=== PATIENT | female | born 1955 | race Caucasian/White ===

== ENCOUNTER → 2017-11-05 01:36 | Outpatient (CLI) | payer BC, SELFPAY ==
--- NOTE | 2017-11-05 11:58 | DI.REPORT_ITS ---
SYMPTOM/DIAGNOSIS: SCREENING, Z12.31, WELL ADULT EXAM, Z00.00 MAMMOGRAM: Mammograms were interpreted according to the usual protocol including computer analysis with CAD system, tomosynthesis and C view imaging. Comparison with prior examinations. Breast density B. No suspicious masses or microcalcifications are seen. There is breast asymmetry in the upper central right breast on the mediolateral oblique view. This area should be further evaluated with spot compression view. Ultrasound may be indicated at that time. IMPRESSION: Additional views of the right breast as described above. Category O. MQSA ASSESSMENT OF FINDINGS: Incomplete: Needs additional imaging evaluation. Category 0. Patient will receive a letter notifying them of these results. BI-RADS category B. There are scattered areas of fibroglandular density.
== END ==
PROVIDERS: PCP Family Medicine; Visit Provider Family Medicine
DX: Z00.00 Encounter for general adult medical examination without abnormal findings (principal); Z12.31 Encounter for screening mammogram for malignant neoplasm of breast; R92.8 Other abnormal and inconclusive findings on diagnostic imaging of breast
CPT/HCPCS: 77063; 77067

== ENCOUNTER → 2017-11-05 03:16 | Outpatient (CLI) | payer BC, SELFPAY ==
[2017-11-05 12:02] LABS: ALT 26 U/L (12-78); AST 17 U/L (15-37); Albumin 4.1 g/dL (3.4-5.0); Alkaline Phosphatase 79 U/L (46-116); Anion Gap 6.5 mmol/L (3-11); BUN 15 mg/dL (7-18); Bilirubin, Total 1.7 mg/dL (0.2-1.0); CO2 28.5 mmol/L (21.0-32.0); CREATININE 0.93 mg/dL (0.55-1.02); Calcium 8.7 mg/dL (8.5-10.1); Chloride 105 mmol/L (98-107); Cholesterol 187 mg/dL (50-200); Glucose 95 mg/dL (70-100); HDL Cholesterol 58 mg/dL (40-60); LDL CHOLESTEROL 106 mg/dL (<100); Potassium 4.2 mmol/L (3.5-5.1); Sodium 140 mmol/L (136-145); Total Protein 7.2 g/dL (6.4-8.2); Triglyceride 173 mg/dL (30-150)
== END ==
PROVIDERS: PCP Family Medicine; Visit Provider Family Medicine
DX: E78.5 Hyperlipidemia, unspecified (principal)
CPT/HCPCS: 36415; 80053; 80061; 83721

== ENCOUNTER → 2017-11-06 14:17 | Outpatient (CLI) | payer BC, SELFPAY ==
--- NOTE | 2017-11-06 15:00 | DI.REPORT_ITS ---
SYMPTOMS/DIAGNOSIS: F/U ABNORMAL MAMMO, BREAST ASYMMETRY IN UPPER CENTRAL RIGHT BREAST ON MEDIOLATERAL OBLIQUE VIEW ADDITIONAL MAMMOGRAPHIC VIEWS OF THE RIGHT BREAST AND RIGHT BREAST ULTRASOUND: A compression right mediolateral image was obtained today. There is moderate radiodensity of the breast tissue. No discrete mass is suggested. At ultrasound, no cyst or mass is seen. SUMMARY: No evidence of malignancy, category 1. Annual screening mammography is recommended. Breast density category B. MQSA ASSESSMENT OF FINDINGS: Negative. Category 1. Patient will receive a letter notifying them of these results. BI-RADS category B. There are scattered areas of fibroglandular density.
== END ==
PROVIDERS: PCP Family Medicine; Visit Provider Family Medicine
DX: Z12.31 Encounter for screening mammogram for malignant neoplasm of breast (principal); R92.8 Other abnormal and inconclusive findings on diagnostic imaging of breast; N64.59 Other signs and symptoms in breast
CPT/HCPCS: 76642; 77063; 77067

== ENCOUNTER 2018-11-05 02:42 | Outpatient (CLI) | payer BC, SELFPAY ==
[2018-11-05 11:21] LABS: Abs Immature Grans 0.01 k/cumm (0.0-0.09); Absolute Eosinophil Count 0.23 k/cumm (0.0-0.7); Absolute Lymphocyte Count 1.94 k/cumm (1.2-3.4); Absolute Monocyte Count 0.32 k/cumm (0.11-0.7); Absolute Neutrophil Count 3.77 k/cumm (1.2-6.7); Basophils % 1.6; Eosinophils % 3.6; HCT 42.3 % (36.0-46.0); HGB 14.6 g/dL (12.0-15.5); Immature Grans % 0.2; Lymphocytes % 30.5; Mean Corp. HGB Concentration 34.5 g/dL (32.0-36.0); Mean Corpuscular Hemoglobin 31.7 pg (27.0-33.0); Mean Platelet Volume 11.7 fL (8.0-11.0); Neutrophils % 59.1; Platelet Count 315 x1000/uL (130-400); RBC Distribution Width 12.1 % (11.7-14.6); White Blood Cell Count 6.37 k/cumm (4.4-10.8)
[2018-11-05 12:12] LABS: ALT 29 U/L (14-59); AST 14 U/L (15-37); Albumin 4.1 g/dL (3.4-5.0); Alkaline Phosphatase 80 U/L (46-116); Anion Gap 10.7 mmol/L (3-11); BUN 15 mg/dL (7-18); Bilirubin, Total 1.1 mg/dL (0.2-1.0); CO2 26.3 mmol/L (21.0-32.0); Calcium 9.1 mg/dL (8.5-10.1); Calculated LDL 99 mg/dL; Chloride 105 mmol/L (98-107); Cholesterol 169 mg/dL (50-200); Glucose 92 mg/dL (70-100); HDL Cholesterol 56 mg/dL (40-60); Potassium 4.4 mmol/L (3.5-5.1); Sodium 142 mmol/L (136-145); Total Protein 7.2 g/dL (6.4-8.2); Triglyceride 72 mg/dL (30-150)
== END 2018-11-05 03:02 ==
PROVIDERS: PCP Family Medicine; Visit Provider Family Medicine
DX: R13.10 Dysphagia, unspecified (principal); R49.0 Dysphonia; E78.5 Hyperlipidemia, unspecified
CPT/HCPCS: 36415; 80053; 80061; 83721; 85025

== ENCOUNTER 2018-11-19 00:41 | Outpatient (CLI) | payer BC, SELFPAY ==
--- NOTE | 2018-11-19 12:47 | DI.MAMMO_ITS ---
SYMPTOM/DIAGNOSIS: SCREENING Z12.31 BILATERAL SCREENING MAMMOGRAM: Mammograms were interpreted according to the usual protocol including computer analysis with CAD system, tomosynthesis and C view imaging. Comparison is made with exams from 2015 through 2018. The breasts are composed of scattered fibroglandular densities, breast density category B. No suspicious masses or suspicious microcalcifications are seen. There has been no significant change. There is motion on the right MLO view. The patient should return for a repeat right MLO view at no additional charge. IMPRESSION: Left beast Category 1, negative. Breast density category B. Right breast Category 0 MQSA ASSESSMENT OF FINDINGS: Incomplete: Needs additional imaging evaluation. Category 0. Patient will receive a letter notifying them of these results. BI-RADS category B. There are scattered areas of fibroglandular density.
== END 2018-11-19 01:01 ==
PROVIDERS: PCP Family Medicine; Visit Provider Family Medicine
DX: Z12.31 Encounter for screening mammogram for malignant neoplasm of breast (principal); R92.8 Other abnormal and inconclusive findings on diagnostic imaging of breast
CPT/HCPCS: 77063; 77067

== ENCOUNTER 2018-12-01 00:35 | Outpatient (CLI) | payer BC, SELFPAY ==
--- NOTE | 2018-12-01 13:55 | DI.MAMMO_ITS ---
EXAM: MG MAMMO SCREEN CALL BACK UNI CLINICAL HISTORY: REPEAT RT MLO VIEW AT NO ADDITIONAL CHARGE DUE TO MOTION. TECHNIQUE: Mammograms were interpreted according to the usual protocol including [facility], tomosynthesis and C-view imaging. COMPARISON: No exams were available for comparison FINDINGS: The breast tissue is of moderate radiodensity. There is no dominant mass, no suspicious calcificatio ns and there has been no significant interval change when compared with prior images. IMPRESSION: No evidence of malignancy, category 1, annual screening mammography is recommended. Breast density: Category BI-RADS Cat 1 - Negative Breast Density - Category B - Scattered areas of fibroglandular density
== END 2018-12-01 00:55 ==
PROVIDERS: PCP Family Medicine; Visit Provider Family Medicine
DX: Z12.31 Encounter for screening mammogram for malignant neoplasm of breast (principal); R92.8 Other abnormal and inconclusive findings on diagnostic imaging of breast; N64.59 Other signs and symptoms in breast
CPT/HCPCS: 77063; 77067

== ENCOUNTER 2019-02-16 08:05 | Day surgery (SDC) | payer BC, SELFPAY ==
[2019-02-16 08:17] VITALS: BP 132/75; PULSE 70; RESP 18; TEMP 36.2; O2SAT 98
--- NOTE | 2019-02-16 08:23 | W.COLOREPORT ---
Date of service: 02/16/19 Time of Service: :39 Colonoscopy Report Date of procedure: 02/16/19 Pre-op diagnosis general: Colon Cancer Screening/ Hx of polyps/ Family history of colon cancer Post-op diagnosis procedure note: same (and polyp and diverticulosis) Procedure: Colonoscopy with polypectomy Surgeon: Clarissa Zheng Anesthesia proc note operative: other (General/ ASA 2/ Ladonna Dorado, ANGELA) Estimated blood loss (mL): 5 Pathology: other (Ascending polyp) Complications: None Disposition: same day Indications: The patient is here for Colonoscopy pre-op. She has not had any bowel habit changes. Her last screening was in 2013, which was remarkable for Tubular adenoma. She reports a family history of colon cancer in her mother and two maternal uncles. -Discussed colonoscopy bowel prep as well as the procedure. Discussed possible complications of the procedure to include bleeding, pain, perforation, missed small lesion/polyp, sore throat, aspiration and adverse reaction to the medications. Questions were answered to patient?s satisfaction. No guarantees were implied or given. Prep: Miralax/Dulcolax Procedure Start Time: Procedure End Time: :09 Retraction Time: 14 minutes Findings: One small sessile polyp in the ascending colon Mild diverticulosis Procedure Description: After informed consent was obtained the patient was taken to the procedure room and placed in a left decubitous position. Monitors were applied and a time out was done. The patients name, date of , procedure, allergies to medications and metal in their body was reviewed. The patient was then sedated. Once sedated and comfortable a rectal exam was done. External exam was normal. Internal exam revealed a normal sphincter tone and no palpable masses. . The scope was then introduced and retro-flexed. No internal hemorrhoids were identified. The scope was then advanced to the cecum without difficulty. The TI and appendiceal orifice were identified. The prep was adequate. The scope was then slowly retracted over 14 minutes back into the rectum. Polyps were removed with cold forceps in the ascending colon. The scope was removed and the patient was woken up and taken back to Same day surgery in stable condition. The patient tolerated the procedure well and there were no immediate complications. Follow up: The patient should follow up in 3-5 years unless they develop changes in bowel habits or other new gastrointestinal complaints.
--- NOTE | 2019-02-16 08:24 | W.PM.DSUDISC ---
Discharge Plan Disposition Patient Disposition: HOME Condition: Good Discharge Details Reason For Visit: Colonoscopy Attending Provider: Clarissa Zheng Primary Care Provider: Salomón Erazo Home Meds and New Rx's Prescriptions: Continued cholecalciferol (vitamin D3) 1,000 unit capsule 1,000 unit PO DAILY RF: 0 biotin 500 mcg capsule 1 mg PO DAILY RF: 0 multivitamin 1 tab PO DAILY RF: 0 atorvastatin [Lipitor] 40 mg tablet 40 mg PO HS 90 Days Qty: 90 RF: 4 Discontinued polyethylene glycol 3350 17 gram/dose powder 238 g PO ONCE Qty: 238 RF: 0 bisacodyl [Dulcolax (bisacodyl)] 5 mg tablet,delayed release (DR/EC) 5 mg PO ONCE Qty: 4 RF: 0 Discharge Instructions Instructions: Diverticulosis (DC) Additional Instructions: Findings: Mild diverticulosis Small polyp Follow up: 3-5 years Please call if you develop: fevers >101.5 Nausea or Vomiting Abdominal pain that is not transient DAY SURGERY UNIT POST ENDOSCOPY INSTRUCTIONS 1. Because there will be medication in your system for the next 24 hours, you may feel a little sleepy. Your coordination will be affected. Therefore: a. Do not drive or operate dangerous equipment for 24 hours. b. Do not drink alcohol beverages for 24 hours (not even beer). c. Plan to go home and rest for the day. 2. Generally there are no restrictions on your activity after a day or so has gone by, but you may feel a bit fatigued for a few days. 3 After you arrive home you may have a light meal and return to a normal diet as you can tolerate it without feeling sick to your stomach. 4. After surgery, you may feel pain or discomfort. This should be only transient, but if it persists please contact your doctor. 5. If there are any questions regarding the findings of your procedure, please feel free to contact your doctor. 6. If you are unable to contact your doctor with a problem, contact the hospital at [phone]. 7. Continue all your regular medications unless directed otherwise. I understand the above instructions and have no questions. Signature of Patient or Responsible Adult Escort Date/Time Name of Responsible Adult Escort Signature of Nurse Date/Time Activity:: Activity as Tolerated Diet:: As Tolerated Discharge Orders Discharge Orders: Discharge Order (Routine); Ordered 02/16/19 Ordered By: Clarissa Zheng DS: Diagnosis Discharge Diagnosis (1) Colonoscopy - MAC: Status: None (2) Family history of colon cancer: Status: Acute (3) Diverticulosis: Status: Acute
[2019-02-16] MEDS: Lactated Ringers 1,000 ML 80 ML IV (08:30)
--- NOTE | 2019-02-16 09:56 | BOWEL_PTH ---
PATIENT: Brooke Livingston LOC: [facility] U#:[id number] AGE/SX: 63/F ROOM: RE02/16/[address]: Clarissa Zheng MD : 1955 BED: DIS: 02/16/2019 SPEC #: [id number] RECD: 02/16/19 13:03 STATUS: CHER RE #: [id number] ALEJANDRA: 02/16/19 09:[address]: Clarissa Zheng DEPT: Surgical Specimen RECD BY: Atiya Araiza ENTERED: 02/16/19 13:04 SP TYPE: Bowel OTHR DR: Salomón Erazo MD Tissues: 1 - BIOPSY BOWEL Procedures: GROSS AND MICRO LEVEL 4 Comments: [id number]
[2019-02-16 10:45] VITALS: BP 111/58; PULSE 64; RESP 18; TEMP 36.4; O2SAT 99
== END 2019-02-16 11:15 | disposition home or self-care (01) ==
PROVIDERS: PCP Family Medicine; Visit Provider Surgery
PROC: 0DJD8ZZ Inspection of Lower Intestinal Tract, Via Natural or Artificial Opening Endoscopic (ICD-10-PCS; CPT 45378; principal; 2019-02-16 09:30)
DX: Z12.11 Encounter for screening for malignant neoplasm of colon (principal); D12.2 Benign neoplasm of ascending colon; Z86.010 Personal history of colon polyps; Z80.0 Family history of malignant neoplasm of digestive organs; K57.30 Diverticulosis of large intestine without perforation or abscess without bleeding
CPT/HCPCS: 45380; 88305

== ENCOUNTER 2019-11-17 04:59 | Outpatient (CLI) | payer BC, SELFPAY ==
[2019-11-17 12:55] LABS: ALT 35 U/L (14-59); AST 21 U/L (15-37); Albumin 4.3 g/dL (3.4-5.0); Alkaline Phosphatase 74 U/L (46-116); Anion Gap 8.7 mmol/L (3-11); BUN 9 mg/dL (7-18); Bilirubin, Total 1.6 mg/dL (0.2-1.0); CO2 27.3 mmol/L (21.0-32.0); CREATININE 0.88 mg/dL (0.55-1.02); Calcium 9.1 mg/dL (8.5-10.1); Calculated LDL 77 mg/dL (<100); Chloride 102 mmol/L (98-107); Cholesterol 156 mg/dL (<200); Glucose 97 mg/dL (74-106); HDL Cholesterol 64 mg/dL (40-60); Potassium 3.8 mmol/L (3.5-5.1); Sodium 138 mmol/L (136-145); Total Protein 7.3 g/dL (6.4-8.2); Triglyceride 78 mg/dL (<150)
== END 2019-11-17 05:19 ==
PROVIDERS: PCP Family Medicine; Visit Provider Family Medicine
DX: Z00.00 Encounter for general adult medical examination without abnormal findings (principal); E78.5 Hyperlipidemia, unspecified
CPT/HCPCS: 36415; 80053; 80061

== ENCOUNTER 2019-12-01 00:29 | Outpatient (CLI) | payer BC, SELFPAY ==
--- NOTE | 2019-12-01 11:11 | DI.MAMMO_ITS ---
EXAM: MG MAMMO SCREENING CLINICAL HISTORY: screening,Z12.31 TECHNIQUE: Bilateral full field digital CC and MLO mammographic images were obtained with 3D tomosyn thesis and utilizing computer aided detection (CAD). COMPARISON: Available for comparison. FINDINGS: Masses/Architectural Distortion: There is a focal asymmetric density in the retroareolar region of th e right breast on the mediolateral oblique view. Microcalcifications: No suspicious pleomorphic-type are seen. Skin Thickening/Nipple Retraction: None. IMPRESSION: 1. Focal asymmetric density in the retroareolar region of the right breast on the MLO view. 2. Spot compression views requested for further evaluation. Ultrasound may be indicated at that time . BI-RADS Category 0 - Assessment Incomplete: Need additional imaging evaluation Breast Density - Category B - Scattered areas of fibroglandular density A negative radiographic report should not delay biopsy if a dominant or clinically suspicious mass is present. Up to ten percent of cancers are not identified on mammography. A negative report may reinforce clinical impression. Adenosis and dense breasts may obscure an underlying neoplasm. False positive reports average 6 to 10%. Patient will receive a letter notifying them of these results.
== END 2019-12-01 00:49 ==
PROVIDERS: PCP Family Medicine; Visit Provider Family Medicine
DX: Z12.31 Encounter for screening mammogram for malignant neoplasm of breast (principal); R92.8 Other abnormal and inconclusive findings on diagnostic imaging of breast
CPT/HCPCS: 77063; 77067

== ENCOUNTER 2019-12-08 01:23 | Outpatient (CLI) | payer BC, SELFPAY ==
--- NOTE | 2019-12-08 09:15 | DI.MAMMO_ITS ---
EXAM: MAMMO SCREEN CALL BACK UNI CLINICAL HISTORY: F/U MAMMO, FOCAL ASYMMETRIC DENSITY ON MLO VIEW TECHNIQUE: Spot compression views including C- View and tomographic imaging were performed. COMPARISON: 01 December 2019 and exams back to 2010 FINDINGS: The breasts are composed of scattered fibroglandular densities, Breast Density category B. No suspicious masses or suspicious microcalcifications are seen. No persistent abnormality is seen on the additional views performed. The findings are consistent wit h overlying fibroglandular tissue. There has been no significant change from prior exams. IMPRESSION: BI-RADS Category 1, Negative Yearly screening mammography is recommended. Breast Density - Category B, scattered fibroglandular densities.
== END 2019-12-08 01:43 ==
PROVIDERS: PCP Family Medicine; Visit Provider Family Medicine
DX: R92.8 Other abnormal and inconclusive findings on diagnostic imaging of breast (principal)
CPT/HCPCS: 77063; 77067

== ENCOUNTER 2020-11-18 12:17 | Outpatient (REF) | payer BC, SELFPAY ==
--- NOTE | 2020-11-18 10:00 | PAPFT_PTH ---
PATIENT: Brooke Livingston LOC: [facility] U#:[id number] AGE/SX: 65/F ROOM: RE11/18/[address]: Fabby Phan : 1955 BED: DIS: 11/18/2020 SPEC #: [id number] RECD: 11/18/20 12:53 STATUS: CHER RECary #: [id number] ALEJANDRA: 11/18/20 10:[address]: Fabby Phan DEPT: [facility] Cytology RECD BY: Atiya Araiza Tissues: 1 - CX/ENDOCX FOR PAP SMEARS Procedures: PAP THIN PREP/UVM Screening HPV DNA PROBE Comments: [id number]
[2020-11-21 14:10] LABS: Chlamydia Result Negative (Negative); GC Result Negative (Negative)
== END 2020-11-18 12:18 | disposition home or self-care (01) ==
LOC: LBN 12:17
PROVIDERS: PCP Family Medicine; Referring Provider Family Medicine; Visit Provider Family Medicine
DX: Z11.8 Encounter for screening for other infectious and parasitic diseases (principal); Z12.4 Encounter for screening for malignant neoplasm of cervix; Z01.419 Encounter for gynecological examination (general) (routine) without abnormal findings; Z11.51 Encounter for screening for human papillomavirus (HPV)
CPT/HCPCS: 87491; 87591; 88142; 87624

== ENCOUNTER 2020-12-08 02:23 | Outpatient (CLI) | payer BC, SELFPAY ==
--- NOTE | 2020-12-08 12:34 | DI.MAMMO_ITS ---
Exam(s) MAMMO SCREENING EXAM: MAMMO SCREENING CLINICAL HISTORY: screening,z12.39 TECHNIQUE: Bilateral full field digital CC and MLO mammographic images were obtained with 3D tomosyn thesis and utilizing computer aided detection (CAD). COMPARISON: Available for comparison. FINDINGS: Masses/Architectural Distortion: None seen. Microcalcifications: No suspicious pleomorphic-type are seen. Skin Thickening/Nipple Retraction: None. IMPRESSION: 1. No significant interval change with no specific features of malignancy noted. 2. Unless there is more urgent need, screening mammography is recommended, as per [employer] guidelines. BI-RADS Category 1 - Negative Breast Density - Category B - Scattered areas of fibroglandular density Breast density category C or D implies that the patient has dense breast tissue. Dense breast tissue is very common and is not abnormal but dense breast tissue can make it harder to find cancer on a ma mmogram. Also, dense breast tissue may increase their breast cancer risk. This information about the result of the mammogram report was provided to the patient to raise their awareness. Use this report when you speak with the patient about their risks for breast cancer, which includes their family hist ory. At that time, you may recommend for more screening tests (Ultrasound or MRI) as they might be us eful based on their risk. A negative radiographic report should not delay biopsy if a dominant or clinically suspicious mass is present. Up to ten percent of cancers are not identified on mammography. A negative report may reinforce clinical impression. Adenosis and dense breasts may obscure an underlying neoplasm. False positive reports average 6 to 10%. Patient will receive a letter notifying them of these results.
== END 2020-12-08 02:43 ==
PROVIDERS: PCP Family Medicine; Visit Provider Family Medicine
DX: Z12.31 Encounter for screening mammogram for malignant neoplasm of breast (principal)
CPT/HCPCS: 77063; 77067

== ENCOUNTER → 2022-02-26 01:29 | Outpatient (CLI) | payer MEDICAID, SELFPAY ==
--- NOTE | 2022-02-26 08:00 | DI.MAMMO_ITS ---
Exam(s) MAMMO SCREENING EXAM: MAMMO SCREENING CLINICAL HISTORY: screening,Z12.39 TECHNIQUE: Mammograms were interpreted according to the usual protocol including computer analysis w [employer] CAD system, tomosynthesis and C-view imaging. COMPARISON: 2012 through 2020 FINDINGS: The breasts are composed of scattered fibroglandular densities, Breast Density category B. No suspicious masses or suspicious microcalcifications are seen. No skin thickening or abnormal axillary lymph nodes are seen. There has been no significant change from prior exams. IMPRESSION: BI-RADS Category 1, Negative mammogram Yearly screening mammography is recommended. Breast Density - Category B, scattered fibroglandular densities. A negative radiographic report should not delay biopsy if a dominant or clinically suspicious mass is present. Up to ten percent of cancers are not identified on mammography. A negative report may reinforce clinical impression. Adenosis and dense breasts may obscure an underlying neoplasm. False positive reports average 6 to 10%. Patient will receive a letter notifying them of these results.
== END ==
PROVIDERS: PCP Family Medicine; Visit Provider Family Medicine
DX: Z12.31 Encounter for screening mammogram for malignant neoplasm of breast (principal)
CPT/HCPCS: 77063; 77067

== ENCOUNTER 2022-06-06 08:12 | Day surgery (SDC) | payer MEDICAID, SELFPAY ==
[2022-06-06 08:34] VITALS: BP 128/84; PULSE 88; RESP 16; TEMP 36.2; O2SAT 96
--- NOTE | 2022-06-06 09:06 | W.ANESPRE ---
General Info Date of Service Date Performed: 06/06/22 Height: 5 ft 4 in Weight: 72.6 kg Body Mass Index (BMI): 27.4 Surgical Procedure: Operation Date: 06/06/22 09:50 Proposed Procedure Side Surgeon p George Eric MD Meds Allergies and Home Medications Allergies Allergy/AdvReac Type Severity Reaction Status Date / Time No Known Allergies Allergy Verified 06/06/22 08:40 Home Medication Medication Instructions Recorded Multivitamin 1 tab PO DAILY 01/04/14 biotin 500 mcg capsule 1 mg PO DAILY 11/03/18 latanoprost (PF) 0.005 % eye drops 1 drp ophthalmic (eye) QPM 11/18/20 atorvastatin 40 mg tablet (Lipitor) 40 mg PO HS 90 days #90 tab-caps 04/16/22 bisacodyl 5 mg tablet,delayed 5 mg PO ONCE #4 tabs 05/24/22 release (Dulcolax (bisacodyl)) calcium carbonate 600 mg calcium 600 mg PO DAILY 05/24/22 (1,500 mg) tablet (Calcium) polyethylene glycol 3350 17 17 g PO ONCE #238 grams 05/24/22 gram/dose oral powder PFSH Active Problems Active Problems: Problem Status Onset Code Tubular adenoma of colon 02/26/14 D12.6 Rosacea L71.9 Hyperlipidemia LDL goal <100 09/23/14 E78.5 Glaucoma H40.9 Serrated adenoma of colon D12.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 Presbylarynges Surgical History Surgical History History of bilateral ligation of fallopian tubes History of section Hx of section Tobacco Smoking/Tobacco Use Status: Former Tobacco Use Passive smoking exposure: Yes Second hand exposure: Yes Alcohol Alcohol Intake: current Alcohol intake frequency: a few times a week Alcohol type: beer and wine Substance Use Substance use: Occasionally Substance use type: marijuana Details: 06/06/22 : LAST SMOKED MARIJUANA 2 WEEKS AGO Vital Signs and Lab Results Vital Signs Most Recent Vital Signs in EMR: Most Recent Vital Signs Temp Pulse Resp BP Pulse Ox 36.2 C L 88 16 128/84 96 06/06/22 08:34 06/06/22 08:34 06/06/22 08:34 06/06/22 08:34 06/06/22 08:34 Lab Results Blood Type / Crossmatch: No Data to Display Complete Blood Count: No Data to Display Complete Metabolic Panel: No Data to Display Liver Function Panel: No Data to Display Coagulation Panel: No Data to Display Cardiac Panel: No Data to Display Arterial Blood Gas: No Data to Display Venous Blood Gas: No Data to Display Pancreas Panel: No Data to Display Thyroid Panel: No Data to Display Infectious Disease: No Data to Display Blood Cultures: No Data to Display Toxicology Panel: No Data to Display Anesthesia Assessment and Plan Anesthesia History Personal History: No History of Anesthesia Complications Family History: No Family History of Anesthesia Complications Exercise Tolerance Exercise Tolerance: Metabolic Equivalents>4 Pertinent Negatives Pertinent Negatives: No Symptoms of GERD Cardiac & Pulmonary Exam Cardiac Exam: Normal S1/S2 Heart Sounds Pulmonary Exam: Clear Bilateral Breath Sounds Implantable Cardiac Device Does patient have a Pacemaker or an ICD?: No Airway Exam Known Difficult Airway: No Mallampati Class: 2 Mouth Opening: Normal (> 3cm) Thyromental Distance: Greater than 3 cm Neck Range of Motion: Full ROM Neck Circumference: Normal Teeth Condition: Normal Dentition ASA Classification ASA Score: ASA 2 Emergency Case?: No NPO Status NPO Status: NPO Clears >2 hours, Solids >8 hours Anesthesia Plan Resuscitation Status: Full Code Anesthesia Technique: General Anesthesia Airway Planned: Natural Airway Monitors Used: Standard Monitors
[2022-06-06] MEDS: Lactated Ringers 1,000 ML 80 ML IV (09:12)
[2022-06-06 09:22] VITALS: BMI 27.4
--- NOTE | 2022-06-06 09:50 | COLE_ITS ---
Date of service: 06/06/22 Time of Service: 10:00 Colonoscopy Report Procedure Description: Procedures performed: 1. Colonoscopy with cold forceps polypectomy x3 Preoperative diagnosis: Surveillance colonoscopy, colon polyps, family history Postoperative diagnosis: Ileal ulcer, colon polyps, grade 1 internal hemorrhoids Surgeon: Elver Eric Anesthesia: Deonte Indication for procedure: Patient is a 66-year-old woman with personal history of adenomatous polyps, her mother and 2 of her mother's brothers (maternal uncles) have all had colon cancer. She had adenomatous polyp on her last colonoscopy. Findings: In the terminal ileum a small ulcer was seen. Significance is uncertain/unknown. I biopsied it with cold forceps technique. There was no other inflammation apparent. Various small polyps 2-3 mm in size were removed in various locations along the colon. Some of them are on the right side. They all had a hyperplastic?appearance to them but because the family and personal history I removed them all with cold forceps technique. Grade 1 internal hemorr hoids noted on retroflexion. Surveillance/follow-up recommendations: Because of the personal, family histories and finding a right?sided adenomatous polyps today I recommend repeating in 3 years.? Complications: None Blood loss: Minimal Specimens:?? YES Quality of Prep:?? Good Procedure in detail: Written consent was obtained from the patient who was in agreement with the risks, benefits and indications of the procedure.? We went to the endoscopy suite and laid the patient in left lateral decubitus position.? Anesthesia was administered which was tolerated well.? A timeout was performed and when we are all in agreement we began the procedure. Digital rectal exam and visual examination was performed and within normal limits.? A well?lubricated colonoscope was advanced without difficulty all the way to the cecum identified by the ileocecal valve, and triangular folds and appendiceal orifice. I intubated the terminal ileum with the above?noted findings. It was then slowly withdrawn.?? Retroflexion was performed in the rectum.? The findings/interventions are noted above. The scope was then removed and the patient tolerated the procedure well and was then taken back to the PACU in hemodynamically stable condition.
--- NOTE | 2022-06-06 10:25 | BOWEL_PTH ---
PATIENT: Brooke Livingston LOC: [facility] U#:[id number] AGE/SX: 66/F ROOM: RE06/06/[address]: Ronnie Eric : 1955 BED: DIS: 06/06/2022 SPEC #: [id number] RECD: 06/06/22 12:51 STATUS: CHER RE #: [id number] ALEJANDRA: 06/06/22 10:[address]: Ronnie Eric DEPT: Surgical Specimen RECD BY: Atiya Araiza ENTERED: 06/06/22 12:52 SP TYPE: Bowel OTHR DR: Fabby Phan Tissues: 1 - BIOPSY BOWEL 2 - BIOPSY BOWEL 3 - BIOPSY BOWEL Procedures: GROSS AND MICRO LEVEL 4 Comments: [id number]
[2022-06-06 10:42] VITALS: BP 110/71; PULSE 73; RESP 16; TEMP 36.5; O2SAT 99
[2022-06-06 11:11] VITALS: BP 122/72; PULSE 64; RESP 16; TEMP 36.4; O2SAT 98
--- NOTE | 2022-06-06 11:30 | W.ANESPOSTOP ---
Postoperative Evaluation Date, Time and Location Date Performed: 06/06/22 Time Performed: 11:30 Patient Location: Day Surgery Unit Vital Signs Most Recent Imported Vital Signs: Most Recent Vital Signs Temp Pulse Resp BP Pulse Ox 36.4 C L 64 16 122/72 98 06/06/22 11:11 06/06/22 11:11 06/06/22 11:11 06/06/22 11:11 06/06/22 11:11 Pain Score Most Recent Pain Score: Most Recent Pain Score Pain Level 0 06/06/22 11:11 Assessment Mental Status: Awake (Alert & Oriented to Patient Baseline) Airway and Respiratory Function: Patent airway with normal (patient baseline) respiratory exam Cardiovascular Function: Hemodynamically Stable Hydration Status: Adequately Hydrated Nausea & Vomiting: No Nausea or Vomiting Pain: Pt. Denies Any Pain Peripheral Nerve Block: Patient did not receive a nerve block Postoperative Comments:: RN discharged without anesthesia seeing the patient, per RN stated patient received discharge instructions and had no complaints.
== END 2022-06-06 11:20 | disposition home or self-care (01) ==
PROVIDERS: PCP Family Medicine; Visit Provider Student in an Organized Health Care Education/Training Program
PROC: 0DJD8ZZ Inspection of Lower Intestinal Tract, Via Natural or Artificial Opening Endoscopic (ICD-10-PCS; CPT 45378; principal; 2022-06-06 09:45)
DX: Z12.11 Encounter for screening for malignant neoplasm of colon (principal); K63.5 Polyp of colon; K64.0 First degree hemorrhoids; K63.3 Ulcer of intestine; Z80.0 Family history of malignant neoplasm of digestive organs; Z86.010 Personal history of colon polyps
CPT/HCPCS: 45380; 88305